=== PATIENT | female | born 1985 | race Caucasian/White ===

== ENCOUNTER 2016-08-09 19:55 | Emergency (ER) | payer BC ==
[~2016-08-09] VITALS: Ht 180.3 cm; Wt 126.8 kg
[~2016-08-09 19:55] MED LIST: AMOXICILLIN 50500 MG PO; FLONASE NASAL S16 GM NS; GENTAMICIN EYE D5 ML OU; IMPLANON68 MG ID; INDERAL 20MG20 MG PO; METFORMIN500 MG PO; NORCO 325 MG-51 TAB PO; PRENATAL1 TA1 PO; SLOW FE45 MG PO; SYNTHROID0.075 MG/T PO; ZITHROMAX Z PA250 MG PO; ZOFRAN 4MG T4 MG/TAB PO; ZOLOFT 50MG50 MG PO
[2016-08-09 19:59] VITALS: TEMP 97.3
[2016-08-09] MEDS ORDERED: SYNTHROID0.1 MG/TAB PO (20:03)
[2016-08-09] MEDS ORDERED: ZOFRAN8 MG PO (20:17)
[2016-08-09] MEDS ORDERED: ULTRAM 50MG TAB50 MG PO (20:17)
[2016-08-09 20:36] LABS: BASO % 0.3 % (0.0-2.0); EOS # 0.2 (0.0-0.7); EOS % 3.5 % (0-4.0); GRAN % 63.5 % (42.2-75.2); HEMATOCRIT 46.6 % (37.0-47.0); HEMOGLOBIN 15.5 g/dl (12.5-16.0); LYMPH # 1.6 (1.2-3.4); MEAN CELL VOLUME 91 fl (80.0-100.0); MEAN CORPUSCULAR HEMOGLOBIN 30 pg (27.0-31.0); MEAN CORPUSCULAR HGB CONC 33 g/dl (33.0-37.0); MEAN PLATELET VOLUME 9.8 fl (7.4-10.4); MONO # 0.4 (0.1-0.6); MONO % 6.4 % (1.7-9.3); PLATELET COUNT 335 K/mm3 (130-400); RED BLOOD COUNT 5.11 M/mm3 (4.10-5.30); REDCELL DISTRIBUTION WIDTH-CV 12.5 % (11.5-14.5); WHITE BLOOD COUNT 6.3 K/mm3 (4.8-10.8)
[2016-08-09 20:50] LABS: ADJUSTED CALCIUM 9.3 mg/dL (8.4-10.2); ALBUMIN 4.4 gm/dL (3.5-5.0); BILIRUBIN,TOTAL 1.1 mg/dL (0.0-1.0); C-REACTIVE PROTEIN 5.9 mg/dL (0.0-0.9); CALCIUM 9.6 mg/dL (8.4-10.2); CREATININE, serum 0.94 mg/dL (0.52-1.25); POTASSIUM 3.2 mmol/L (3.4-5.0); TOTAL PROTEIN 8.2 gm/dL (6.4-8.2)
[2016-08-09] MEDS ORDERED: ZOFRAN 4MG T4 MG/TAB PO (21:27)
[2016-08-09 21:37] VITALS: BP 159/97; PULSE 88
== END 2016-08-09 21:39 | disposition home or self-care (01) ==
LOC: COL.ER 19:55
PROVIDERS: Emergency Medicine
DX: R19.7 Diarrhea, unspecified (principal)
CPT/HCPCS: J2405; J7030